=== PATIENT | male | born 1965 | race Caucasian/White ===

== ENCOUNTER 2020-06-29 13:09 | Outpatient (REF) | payer OTHER, SELFPAY ==
[2020-06-29 15:59] LABS: HCT 46.8 % (40.0-50.0); HGB 15.6 g/dL (13.5-17.5); MCH 29.1 pg (27.0-33.0); MCHC 33.3 % (32.0-36.0); MCV 87.3 fL (80-95); MPV 12.2 fL (8.0-11.0); Platelet Count 283 10^3/uL (130-400); RBC 5.36 10^6/uL (4.36-5.78); RDW 12.4 % (11.8-14.1); RDW-SD 39.4 fL; WBC 8.79 10^3/uL (4.4-10.8)
[2020-06-29 16:16] LABS: ALT 48 U/L (16-63); AST 18 U/L (15-37); Albumin 4.6 g/dL (3.4-5.0); Alkaline Phosphatase 88 U/L (46-116); Anion Gap 11.4 mmol/L (3-11); BUN 15 mg/dL (7-18); Bilirubin, Total 0.4 mg/dL (0.2-1.0); CO2 28.6 mmol/L (21.0-32.0); Calcium 9.4 mg/dL (8.5-10.1); Calculated LDL 122 mg/dL (<100); Chloride 102 mmol/L (98-107); Cholesterol 227 mg/dL (<200); Glucose 88 mg/dL (74-106); HDL Cholesterol 38 mg/dL (40-60); Potassium 4.1 mmol/L (3.5-5.1); Sodium 142 mmol/L (136-145); Total Protein 9.4 g/dL (6.4-8.2); Triglyceride 336 mg/dL (<150)
[2020-06-29 16:27] LABS: COMMENT (LAB VIEW ONLY) 28.22 mg/dL; Microalb ug/mg Crea 5.7 ug/mg Cr
[2020-06-30 10:44] LABS: HIV-1/2 Ag & Ab Screen Negative (Negative)
[2020-06-30 10:54] LABS: Hepatitis C Ab w Rflx HCV PCR Negative (Negative)
== END 2020-06-29 13:10 | disposition home or self-care (01) ==
LOC: NCHCN 13:09
PROVIDERS: PCP Internal Medicine; Visit Provider Nurse Practitioner Family
DX: E78.70 Disorder of bile acid and cholesterol metabolism, unspecified (principal); Z11.4 Encounter for screening for human immunodeficiency virus [HIV]; Z11.59 Encounter for screening for other viral diseases
CPT/HCPCS: 80053; 80061; 85027; 86803; 87389; 82043; 82570

== ENCOUNTER 2021-01-25 02:11 | Outpatient (CLI) | payer OTHER, SELFPAY ==
[2021-01-25 10:32] LABS: Ferritin 233 ng/mL (26-388)
[2021-01-25 17:13] LABS: Vitamin D 25 Total 12.1 ng/mL (30-100)
== END 2021-01-25 02:12 | disposition home or self-care (01) ==
LOC: LBO 02:11
PROVIDERS: PCP Internal Medicine; Visit Provider Internal Medicine Sleep Medicine
DX: G47.61 Periodic limb movement disorder (principal); E55.9 Vitamin D deficiency, unspecified; R53.83 Other fatigue
CPT/HCPCS: 36415; 82306; 82728; 84443

== ENCOUNTER 2021-05-16 01:10 | Outpatient (REF) | payer OTHER, SELFPAY ==
[2021-05-16 10:38] LABS: Source Nasal/Nares
[2021-05-16 14:11] LABS: COVID-19 PCR Negative (Negative)
== END 2021-05-16 01:11 | disposition home or self-care (01) ==
LOC: LBO 01:10
PROVIDERS: PCP Internal Medicine; Visit Provider Family Medicine
DX: Z20.822 Contact with and (suspected) exposure to COVID-19 (principal)
CPT/HCPCS: 87635